=== PATIENT | male | born 2000 | race Caucasian/White ===

== ENCOUNTER 2018-02-09 10:45 | Emergency (ER) | payer OTHER ==
[~2018-02-09] VITALS: Ht 185.4 cm; Wt 97.5 kg
--- NOTE | ~2018-02-09 | EKG ---
[address] [address] ELECTROCARDIOGRAM REPORT Name: RICHY BURTON Room #: JOSSIE Garcia#: [id number] Admission: 02/09/18 Attend Phys: Discharge: 02/09/18 Date of : [birth year] Report #: [id number] THIS REPORT FOR: //name// [facility] ED Test Date: 2018-02-09 Test Time: 11:19:01 Pat Name: RICHY BURTON Department: Room: Gender: [employer] Work[employer] Helper: [facility] : 2000 Requested By: Mayco Peters Order Number: [id number] MD: Carlos Malloy Measurements Intervals [place] Rate: 95 P: 72 MO: 141 QRS: 49 QRSD: 86 T: 41 QT: 329 QTc: 414 Interpretive Statements Sinus rhythm No significant abnormality, early repolarization No previous ECG available for comparison Electronically Signed On 02-10-2018 8:48:08 CDT by Carlos Malloy [email or web address] <ELECTRONICALLY SIGNED> By: Carlos Malloy MD, [facility] 02/10/18 0848 1119 1119 Carlos Malloy MD, FACC /EPI
[2018-02-09 13:00] VITALS: BP 126/78
[2018-02-09] MEDS ORDERED: NORCO 5-325 TA1 EACH PO (13:21)
[2018-02-09] MEDS ORDERED: SENNA-DOCUSATE1 EACH PO (15:52)
[2018-02-09] MEDS ORDERED: IBUPROFEN 600600 M1 PO (16:15)
[2018-02-09] MEDS ORDERED: NORFLEX100 MG PO (16:15)
== END 2018-02-09 16:24 | disposition home or self-care (01) ==
LOC: ER 10:45
DX: R20.2 Paresthesia of skin (principal); M54.6 Pain in thoracic spine; M25.512 Pain in left shoulder

== ENCOUNTER 2018-07-04 12:34 | Emergency (ER) | payer OTHER ==
[~2018-07-04] VITALS: Ht 182.9 cm; Wt 104.3 kg
[~2018-07-04 12:34] MED LIST: IBUPROFEN 600600 M1 PO; NORCO 5-325 TA1 EACH PO; NORFLEX100 MG PO; SENNA-DOCUSATE1 EACH PO
[2018-07-04 14:17] VITALS: BP 151/86
== END 2018-07-04 14:05 | disposition left against medical advice (07) ==
LOC: ER 12:34
DX: Z53.21 Procedure and treatment not carried out due to patient leaving prior to being seen by health care provider (principal)

== ENCOUNTER 2018-07-06 14:10 | Emergency (ER) | payer OTHER ==
[~2018-07-06] VITALS: Ht 172.7 cm; Wt 99.8 kg
[2018-07-06] MEDS ORDERED: NAPROSYN500 MG PO (14:49)
[2018-07-06] MEDS ORDERED: LIDOCAINE PAIN1 EACH TOP (14:52)
[2018-07-06 15:08] VITALS: BP 135/86
== END 2018-07-06 15:05 | disposition home or self-care (01) ==
LOC: ER 14:10
DX: S29.012A Strain of muscle and tendon of back wall of thorax, initial encounter (principal); X58.XXXA Exposure to other specified factors, initial encounter; Y93.89 Activity, other specified; Y92.89 Other specified places as the place of occurrence of the external cause; Y99.8 Other external cause status; M54.9 Dorsalgia, unspecified; G89.29 Other chronic pain; Z88.0 Allergy status to penicillin